=== PATIENT | female | born 1960 | race Caucasian/White ===

== ENCOUNTER 2017-12-28 05:39 | Day surgery (SDC) | payer OTHER, SELFPAY ==
[2017-12-28] VITALS (8 sets, daily range): BP systolic 113–135; BP diastolic 67–85; PULSE 54–95; RESP 16; TEMP 36.2–36.4; O2SAT 95–100; BMI 29.9
--- NOTE | 2017-12-28 | ETH_PTH ---
PATIENT: CRISTINA JOHNSON LOC: [facility] [place] U#:[id number] AGE/SX: 57/F ROOM: RE12/28/[address]: Dr. Joshua De Leon MD : [id number] BED: DIS: 12/28/2017 SPEC #: [id number] RECD: 12/28/17 13:25 STATUS: TEETEE BATISTA #: [id number] FABRICE: 12/28/17 00:[address]: Joshua De Leon DEPT: SURGICAL PATHOLOGY RECD BY: Harry Dowling ENTERED: 12/28/17 13:25 SP TYPE: ETH TISS OTHR DR: Out of [facility] Doctor Tissues: A - Ethmoid sinus, NOS B - Ethmoid sinus, NOS Procedures: Surgery Specimen Level IV HEADER OPERATION: Endoscopy nasal/sinus maxillary antrostomy, endoscopy nasal PRE-OP DIAGNOSIS: Acute ethmoid sinusitis, chronic maxillary sinusitis, chronic ethmoid sinusitis, hypertrophy of nasal turbinates TISSUE SUBMITTED: A ? Left ethmoid contents, B ? Right ethmoid contents and inferior turbinates MICROSCOPIC DIAGNOSIS A. Left ethmoid sinus contents, excision: Consistent with chronic sinusitis. Fragments of bone with no significant pathologic change. B. Right ethmoid sinus contents, excision: Consistent with chronic sinusitis. Fragments of bone with no significant pathologic change. AM:antonio 12/29/17 MICROSCOPIC DESCRIPTION Slides are reviewed. GROSS DESCRIPTION A - Received in fixative is one container labeled with the patient's name and designated left ethmoid contents. The specimen consists of multiple irregular fragments of gritty rodriguez tissue that in aggregate measure 2.5 x 1.5 x 0.1 cm. The specimen is totally submitted in one cassette. B - Received in fixative is one container labeled with the patient's name and designated right ethmoid contents. The specimen consists of multiple irregular fragments of gritty rodriguez tissue that in aggregate measure 2 x 2 x 0.2 cm. The specimen is totally submitted in one cassette. / AM:antonio 12/28/17 TC:3 CPT: 87441 x2
[2017-12-28 06:43] LABS: Hematocrit 40.4 % (37-47); Hemoglobin 13.3 g/dl (12.0-15.0); Mean Corp Hgb Conc 32.9 g/gl (32-36); Mean Corpuscular Hgb 30.2 pg (27.0-32.0); Mean Corpuscular Volume 91.6 fL (81-99); Platelet Count 189 K/mm3 (150-450); RBC Distribution Width CV 12.6 % (11.6-14.6); RBC Distribution Width SD 42.5 fl (35.1-43.9); Red Blood Count 4.41 M/mm3 (4.2-5.4); White Blood Count 3.9 K/mm3 (4.4-11.0)
[2017-12-28 06:47] LABS: Anion Gap 8 (5-15); BUN 18 mg/dL (7-18); BUN/Creat Ratio 15.9 RATIO (10-20); Calcium,Total 8.7 mg/dL (8.5-10.1); Chloride 107 mmol/L (98-107); Creatinine, Serum 1.13 mg/dL (0.55-1.02); EST Glomerular Filtration Rate 52 mL/min (>60); Est Glom Filt Rate - Afr Amer 63 mL/min (>60); Estimated Creatinine Clearance 56.87 ml/min; Glucose 102 mg/dL (74-106); Potassium 4.3 mmol/L (3.5-5.1); Sodium Level 141 mmol/L (136-145)
[2017-12-28 06:56] LABS: Scan Indicated on CBC? Y/N NO
[2017-12-28] MEDS: Oxymetazoline 0.05% 1 SPRAY SPRAY.BTL 15 SPRAY (08:02)
[2017-12-28] MEDS: Lidocaine 4% 50 ML Bottle (08:02)
[2017-12-28] MEDS: Bacitracin 500 UNITS/GM PACKET (08:56)
--- NOTE | 2017-12-28 09:04 | PCM.OPRPT ---
Problem List (1) Chronic ethmoidal sinusitis Status: Acute (2) Chronic maxillary sinusitis Status: Acute (3) Hypertrophy of both inferior nasal turbinates Status: Acute Report of Operation Date of Procedure: 12/28/17 Pre-Operative Diagnosis: Chronic sinusitis, hypertrophy of inferior turbinates Post-Operative Diagnosis: same Surgery/Procedure Performed:: Bilateral endoscopic total ethmoidectomy, maxillary antrostomy, submucous resection of inferior nasal turbinates Description of Surgical Findings:: Linda is a 57-year-old female with chronic recurrent sinusitis and nasal obstruction failing medical therapy with appropriate course of antibiotic treatment. Examination showed accessory sinus ostia of the maxillary sinuses consistent with chronic disease and CT scan confirmed findings of chronic maxillary and ethmoid sinusitis and the above procedure was offered in hopes of alleviation his complaints and she was eager to proceed. The risks, alternatives, potential benefits, and complications were discussed at length and any questions answered to the patient and/or caregiver's satisfaction. Witnessed informed consent was obtained in the office, and the patient and/or caregiver was agreeable to proceed. Procedure went as follows: The patient was identified in the preoperative holding and brought to the operating room, was placed under general anesthesia and intubated. When appropriate anesthesia was obtained, the navigational head gear was placed and confirmed to be operational in accordance with the central sterile tech's directions. Pledgets soaked in a 50-50 mixture of oxymetazoline and 4% topical lidocaine were placed to decongest the nasal mucosa. These were then removed and beginning on the left side using a 0? endoscope the nasal cavity examined. The insertion of the middle turbinate and uncinate process was then injected with 1% lidocaine with 100,000 epinephrine for a 2 cc total, and a similar injection was then carried on the contralateral side. Upon returning to the left side the middle turbinate was medialized with a Zainab elevator. This allowed examination of the maxillary sinus ostia which is then probed with a double ball seeker. There was noted to be an accessory sinus ostia inferior to the natural ostia and care to join this into a common opening was taken during the procedure. The uncinate process process was then outfractured with a J curette and transected with a backbiting forceps. This was then removed with the microdebrider creating a wide maxillary antrostomy. The ethmoid bulla was then entered and total ethmoidectomy was then carried out working posteriorly to anterior. Any polyps, scar, and mucous secretions were removed. Pledgets soaked in oxymetazoline were then placed for hemostasis and attention turned to the contralateral side. Similar procedure and findings were then carried out. Again, an accessory maxillary sinus ostia was noted. Upon completion, Floseal hemostatic agent was then applied. Attention was then turned to the inferior nasal turbinates. Anterior aspect of the inferior turbinate was then injected with 1% lidocaine with 100,000 epinephrine for a total of 1 cc bilaterally and then beginning on the left side a 15 blade scalpel used to create a stab incision in the anterior aspect of the turbinate. A caudal elevator was then used to elevate a submucosal plane. Using the microdebrider the anterior bony intervening submucosal was then removed resulting in excellent reduction of the inferior turbinate. Similar procedure was then completed on the contralateral side. Armenta splints were then applied after cutting with bacitracin ointment and secured to the columella with a single 3-0 Prolene suture. An NG tube was then placed to decompress the stomach and the patient returned to anesthesia, revived and extubated having tolerated the procedure well. Type of Anesthesia:: General Anesthesiologist: Joshua Shook Special Medications: none Specimen's removed: sinus and turbinate tissue Drains: none Estimated Blood Loss (mL): 100 mL Fluids Replaced: 1100 mL Grafts/Implants Used: Armenta splints - Complications none - Admit VTE Documentation VTE Present on Admission: No VTE Mechan Device Prophylaxis: SCD's VTE Pharm Prophylaxis ordered?: No
--- NOTE | 2017-12-28 09:12 | PCM.DC ---
- Discharge Diagnoses Current Active Problems: Current Active and Chronic Problems Chronic ethmoidal sinusitis (Acute) Chronic maxillary sinusitis (Acute) Hypertrophy of both inferior nasal turbinates (Acute) You will use the following diet at home:: No restrictions Discharge Activity: Return to Normal Activity, May not drive while taking narcotic pain medications. Call your doctor if your incision/area has: Continuous Slow Oozing, Sudden Increased Bleeding Call your doctor if you observe: Fever of 101 or Higher, Uncontrolled pain Allergies/Adverse Reactions: Allergies No Known Allergies Allergy (Verified 12/21/17 15:22) Medications to take at Discharge Calcium Carbonate [Calcium] 600 mg PO DAILY 12/21/17 Fexofenadine/Pseudoephedrine [Brenda-D 24 Hour Tablet] 1 tab PO PRN PRN 12/21/17 Smz/Tmp Ds [Bactrim Ds] 1 tablet PO BID 12/21/17 Primary Care Physician: Nasim Kaminski,Out of [Primary Care Provider] - Test Results: Test results from this visit will be discussed in further detail at your follow-up appointment, if applicable. Please Follow Up With: Joshua De Leon MD When: 5 days
[2017-12-28] MEDS: Acetaminophen 325 MG Tablet 650 MG PO (11:58)
[2017-12-28] MEDS: Ibuprofen 400 MG Tablet PO (12:00)
== END 2017-12-28 12:34 | disposition home or self-care (01) ==
LOC: SDC 05:41 → AC 05:42
PROVIDERS: Visit Provider Otolaryngology
PROC: (CPT 31255; principal; 2017-12-28 07:00)
DX: J32.0 Chronic maxillary sinusitis (principal); J32.2 Chronic ethmoidal sinusitis; J34.3 Hypertrophy of nasal turbinates; J01.20 Acute ethmoidal sinusitis, unspecified; J30.1 Allergic rhinitis due to pollen; Z79.2 Long term (current) use of antibiotics; Z79.899 Other long term (current) drug therapy
CPT/HCPCS: 31255; 31256; 36415; 80048; 85027; 88305; 93005; J7120; J2405